=== PATIENT | male | born 1985 | race Caucasian/White ===

== ENCOUNTER 2017-02-20 17:54 | Emergency (ER) | payer OTHER ==
[2017-02-20 18:05] VITALS: BP 135/75
== END 2017-02-20 18:49 | disposition home or self-care (01) ==
LOC: ED 17:54
DX: B34.9 Viral infection, unspecified (principal)

== ENCOUNTER 2017-02-21 00:14 | Emergency (ER) | payer OTHER ==
[~2017-02-21] VITALS: Ht 175.3 cm; Wt 94.8 kg
[2017-02-21 00:36] VITALS: Ht 175.3 cm; Wt 94.8 kg
[2017-02-21 03:00] VITALS: BP 131/84
== END 2017-02-21 03:00 | disposition home or self-care (01) ==
LOC: ED 00:14
DX: B34.9 Viral infection, unspecified (principal)
CPT/HCPCS: J1885

== ENCOUNTER 2019-09-08 10:23 | Emergency (ER) | payer SELFPAY ==
[~2019-09-08] VITALS: Ht 175.3 cm; Wt 105.7 kg
[2019-09-08 10:25] VITALS: Ht 175.3 cm; Wt 105.7 kg
[2019-09-08 12:09] VITALS: BP 110/84
== END 2019-09-08 12:09 | disposition home or self-care (01) ==
LOC: ED 10:23
DX: J06.9 Acute upper respiratory infection, unspecified (principal); Z20.828 Contact with and (suspected) exposure to other viral communicable diseases; Z98.890 Other specified postprocedural states
CPT/HCPCS: U0003-CS